=== PATIENT | female | born 1960 | race Caucasian/White ===

== ENCOUNTER → 2021-02-12 10:38 | Outpatient (BNVA) | payer SELFPAY | PROVIDERS: Family Provider Family Medicine; Visit Provider Nurse Practitioner Family | DX: M25.50 Pain in unspecified joint (principal); Z13.6 Encounter for screening for cardiovascular disorders | CPT/HCPCS: 80053; 80061; 82306; 82607; 83735; 84443; 84550; 85025; 85651; 86038; 86140; 86431 ==

== ENCOUNTER → 2021-02-19 11:28 | Outpatient (BNVA) | payer SELFPAY | PROVIDERS: Family Provider Family Medicine; Visit Provider Nurse Practitioner Family | DX: R60.9 Edema, unspecified (principal) | CPT/HCPCS: 80048 ==

== ENCOUNTER → 2021-02-25 11:51 | Outpatient (BNVA) | payer SELFPAY | PROVIDERS: Family Provider Family Medicine; Visit Provider Nurse Practitioner Family | DX: R60.9 Edema, unspecified (principal); E53.8 Deficiency of other specified B group vitamins | CPT/HCPCS: 80048; 83880 ==

== ENCOUNTER → 2021-03-03 14:41 | Outpatient (BNVA) | payer SELFPAY | PROVIDERS: Family Provider Family Medicine; Visit Provider Nurse Practitioner Family | DX: R60.9 Edema, unspecified (principal); E53.8 Deficiency of other specified B group vitamins | CPT/HCPCS: 80053; 83880; 85025; 85651; 86140 ==

== ENCOUNTER → 2021-03-14 11:40 | Outpatient (BNVA) | payer SELFPAY | PROVIDERS: Family Provider Family Medicine; PCP Family Medicine; Visit Provider Nurse Practitioner Family | DX: R60.9 Edema, unspecified (principal); L03.119 Cellulitis of unspecified part of limb; E53.8 Deficiency of other specified B group vitamins; Z79.899 Other long term (current) drug therapy | CPT/HCPCS: 80048; 82607 ==

== ENCOUNTER → 2021-03-27 13:08 | Outpatient (BNVA) | payer SELFPAY | PROVIDERS: Family Provider Family Medicine; PCP Family Medicine; Visit Provider Nurse Practitioner Family | DX: R60.9 Edema, unspecified (principal); Z79.899 Other long term (current) drug therapy | CPT/HCPCS: 80048 ==

== ENCOUNTER 2021-04-11 12:09 | Outpatient (CLI) | payer SELFPAY ==
--- NOTE | 2021-04-11 12:45 | USCV_ITS ---
Peggy White Age: 60 Gender: F : 1960 Exam Date: 04/11/2021 12:35 Ordering Phys: Yolanda Mora [employer]RB[employer]ENEWAL MANAGER Technologist: RENNY Exam Location: [facility] – [place] Indication: EDEMA BP: / HR: 97 Rhythm: Sinus Technical Quality: Adequate MEASUREMENTS (Male / Female) Normal Values 2D ECHO LV Diastolic Diameter PLAX 3.5 cm 4.2 - 5.9 / 3.9 - 5.3 cm LV Systolic Diameter PLAX 2.4 cm LV Chamber Size 3.9 cm IVS Diastolic Thickness 1.2 cm 0.6 - 1.0 / 0.6 - 0.9 cm IVS Systolic Thickness 1.2 cm LVPW Diastolic Thickness 1.5 cm 0.6 - 1.0 / 0.6 - 0.9 cm LVPW Systolic Thickness 1.6 cm RV Chamber Size 2.1 cm LVOT Diameter 2.1 cm LV Ejection Fraction 2D Teich 61.1 % LV Ejection Fraction MOD 2C 37.6 % LV Ejection Fraction 2C AL 36.5 % LA Diameter 3.0 cm LA Width 2.1 cm LA Height 3.4 cm RA Width 2.4 cm RA Height 3.5 cm Aorta at Sinotubular Diameter 2.6 cm M-MODE LV Diastolic Diameter MM 4.7 cm 4.2 - 5.9 / 3.9 - 5.3 cm LV Systolic Diameter MM 3.0 cm LV Ejection Fraction MM Teich 66.5 % IVS Diastolic Thickness MM 0.7 cm 0.6 - 1.0 / 0.6 - 0.9 cm IVS Systolic Thickness MM 0.8 cm LVPW Diastolic Thickness MM 1.0 cm 0.6 - 1.0 / 0.6 - 0.9 cm LVPW Systolic Thickness MM 1.0 cm Aortic Annulus Diameter 2.8 cm LA Ao Ratio MM 1.2 MV E Point Septal Separation 0.5 cm DOPPLER AV Peak Velocity 181.0 cm/s LVOT Peak Velocity 135.0 cm/s AV Area Cont Eq vti 2.9 cm squared AV Area Cont Eq pk 2.5 cm squared MV Area PHT 3.1 cm squared Mitral E to A Ratio 0.8 MV E' Velocity 54.0 cm/s Mitral E to MV E' Ratio 7.1 Mitral E to LV E' Lateral Ratio 6.7 Mitral E to LV E' Septal Ratio 7.6 TR Peak Velocity 267.8 cm/s TR Peak Gradient 28.7 mmHg TV Peak E Velocity 56.0 cm/s Right Atrial Pressure 3.0 mmHg Pulmonary Artery Systolic Pressu 31.7 mmHg PV Peak Velocity 76.0 cm/s RV Acceleration Time 0.1 s RV Ejection Time 0.4 s RV AcT/ET 0.4 FINDINGS Left Ventricle Normal left ventricular size and systolic function, EF 60%. No regional wall motion abnormalities. Grade I/IV diastolic dysfunction (abnormal relaxation filling pattern), normal to mildly elevated filling pressures. Mildly increased left ventricular mass. Mildly increased septal wall thickness. Moderately increased posterior wall thickness. Moderately decreased left ventricular ejection fraction. Right Ventricle The right ventricle is normal in size and function. Right Atrium The right atrium is normal in size. Left Atrium The left atrium is normal in size. Mitral Valve No gross morphologic abnormalities Aortic Valve Thickened aortic valve. Mild aortic valve regurgitation. Tricuspid Valve Trace to mild tricuspid valve regurgitation. Pulmonic Valve Pulmonic valve not well visualized. Pericardium Normal pericardium without effusion. Aorta Normal ascending aorta dimension. CONCLUSIONS Normal left ventricular size and systolic function, EF 60%. No regional wall motion abnormalities. Grade I/IV diastolic dysfunction (abnormal relaxation filling pattern), normal to mildly elevated filling pressures. Thickened aortic valve. Mild aortic valve regurgitation. Trace to mild tricuspid valve regurgitation. There is no pericardial effusion. There are no intracardiac masses. Dr Yao Neri MD FAC (Electronically Signed) Final Date: 11 April 2021 16:25 S
== END 2021-04-11 12:10 | disposition home or self-care (01) ==
LOC: RAD 12:13
PROVIDERS: PCP Nurse Practitioner Family; Visit Provider Nurse Practitioner Family
DX: R60.9 Edema, unspecified (principal); R79.89 Other specified abnormal findings of blood chemistry; I08.2 Rheumatic disorders of both aortic and tricuspid valves
CPT/HCPCS: 93306

== ENCOUNTER 2021-04-11 13:07 | Outpatient (CLI) | payer SELFPAY ==
--- NOTE | 2021-04-11 13:16 | XR_ITS ---
WS: [id number] SCREENING DEXA SCAN [employer] CLINICAL INFORMATION: N95.1 - Menopausal and female climacteric states COMPARISON: None. FINDINGS: The L1-L4 bone mineral density measures 0.909 g/cm2. This corresponds to a T score score of -2.3 and Z score of -0.8. Left femoral neck bone mineral density measures 0.583 g/cm2. This corresponds to a T score of -3.4 an d Z score of -2.3. Right femoral neck bone mineral density measures 0.585 g/cm2. This corresponds to a T score -3.4of an d Z score of -2.3. Mean femoral neck bone mineral density measures 0.584 g/cm2. This corresponds to a T score of -3.4 an d Z score of -2.3. XR/XR DEXA axial skeleton* [id number] IMPRESSION: Osteopenia lumbar spine. Osteoporosis in the femoral necks. Patient's FRAX calculated 10 year probability for major osteoporotic fracture i s 12.1 % and osteoporotic hip fracture is 2.8%.
== END 2021-04-11 13:08 | disposition home or self-care (01) ==
LOC: RADWPI 13:10
PROVIDERS: PCP Nurse Practitioner Family; Visit Provider Nurse Practitioner Family
DX: N95.1 Menopausal and female climacteric states (principal); M85.88 Other specified disorders of bone density and structure, other site; M81.0 Age-related osteoporosis without current pathological fracture
CPT/HCPCS: 77080

== ENCOUNTER → 2021-06-03 14:28 | Outpatient (BNVA) | payer SELFPAY | PROVIDERS: PCP Nurse Practitioner Family; Referring Provider Nurse Practitioner Family; Visit Provider Internal Medicine | DX: R06.02 Shortness of breath (principal); R79.89 Other specified abnormal findings of blood chemistry; R60.9 Edema, unspecified; Z13.6 Encounter for screening for cardiovascular disorders; I50.30 Unspecified diastolic (congestive) heart failure; I11.0 Hypertensive heart disease with heart failure; Z87.891 Personal history of nicotine dependence | CPT/HCPCS: 80048; 83880 ==

== ENCOUNTER → 2021-08-04 14:29 | Outpatient (BNVA) | payer SELFPAY | PROVIDERS: PCP Nurse Practitioner Family; Visit Provider Nurse Practitioner Family | DX: I10 Essential (primary) hypertension (principal); E55.9 Vitamin D deficiency, unspecified; E53.8 Deficiency of other specified B group vitamins | CPT/HCPCS: 80053; 82306; 82607 ==

== ENCOUNTER 2021-08-22 08:25 | Outpatient (CLI) | payer SELFPAY ==
[2021-08-22 09:05] VITALS: BMI 23.3
--- NOTE | 2021-08-22 09:06 | ECG_ITS ---
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 Interpretive Statements NAME OF STUDY: LEXISCAN SESTAMIBI STRESS TEST INDICATION: [Chest Pain, ] Procedure: At the baseline, the blood pressure was 136/76 mmHg with a heart rate of T7 bpm. The electrocardiogram showed normal sinus rhythm, normal axis with normal ST and T's. The Lexiscan was infused over a period of 20 seconds. A total of 0.4 mg of Lexiscan was infused. The stress phase was continued for a total of 5 minutes. Heart rate was at the end of stress phase was 98 bpm and a blood pressure of 143/79 mmHg. The EKG at the peak infusion revealed since normal sinus rhythm with no significant ST-T wave changes. Sestamibi was injected 20 seconds after the Lexiscan infusion. Blood pressure at the end of recovery phase was 144/76 mmHg with a heart rate of 97 bpm. Conclusion: 1. Normal EKG response to Lexiscan infusion 2. No Lexiscan induced chest pain or cardiac arrhythmia. 3. Normal blood pressure and heart rate response. 4. Sestamibi/sestamibi perfusion scan pending; see separate report. Electronically Signed On 08-25-2021 11:32:53 FOOD SERVICE DRIVER by Yunior Pinto M.D. [email or web address]
--- NOTE | 2021-08-22 09:06 | NMCV_ITS ---
NM tamiko perf SPECT r/s* [id number] Peggy White Age: 61 Gender: F : 1960 Exam Date: 08/22/2021 09:34 Ordering Phys: Yunior Pinto M.D ([email or web address]) Technologist: RILEY Alba Exam Location: [facility] Indications: CHEST PAIN STRESS TEST [facility] IMAGE PROTOCOL Rest/Stress 1 Lexiscan Day Radiopharmaceutical Dose (mCi) Administration Site Administered by Rest: Tc-99m 10.8 IV RILEY Rodriguez Sestamibi Stress:Tc-99m 32.4 IV RILEY Rodriguez Sestamibi Rest: 22-Aug-2021 60 Discovery 630 Stress: 22-Aug-2021 30 Discovery 630 0.4mg Lexiscan. Images obtained in supine and prone position. SPECT RESULTS Technical Quality: Excellent Raw Data Analysis: Normal Image Corrections: No attenuation or motion correction applied Summed Stress Score: 0 Summed Rest Score: 0 Summed Difference Score: 0 PERFUSION FINDINGS SPECT images demonstrate homogeneous tracer distribution throughout the myocardium. FUNCTIONAL RESULTS (calculated via Gated SPECT) Stress Image LV EF (%): 87 Stress EDV (mL):53 TID: 0.91 Stress ESV (mL):7 FUNCTIONAL FINDINGS: There is normal left ventricular systolic function. IMPRESSIONS 1. Normal myocardial perfusion imaging with no evidence of ischemia. 2. LV systolic function is normal. Yunior Pinto MD (Electronically Signed) Final Date: 23 August 2021 20:07 S
[2021-08-22] MEDS: regadenoson 0.4 Mg/5 ml Syringe IVP (10:15)
[2021-08-22 10:37] VITALS: BP 144/76; PULSE 97
== END 2021-08-22 08:26 | disposition home or self-care (01) ==
LOC: CDL 08:27
PROVIDERS: PCP Nurse Practitioner Family; Visit Provider Internal Medicine
DX: R07.9 Chest pain, unspecified (principal)
CPT/HCPCS: 78452; 93017; A9500; J2785

== ENCOUNTER → 2021-09-16 13:52 | Outpatient (BNVA) | payer SELFPAY | PROVIDERS: PCP Nurse Practitioner Family; Visit Provider Internal Medicine | DX: Z13.6 Encounter for screening for cardiovascular disorders (principal); R06.02 Shortness of breath; R79.89 Other specified abnormal findings of blood chemistry; R60.9 Edema, unspecified; I11.0 Hypertensive heart disease with heart failure; I50.30 Unspecified diastolic (congestive) heart failure; Z87.891 Personal history of nicotine dependence | CPT/HCPCS: 80048; 83880 ==

== ENCOUNTER → 2021-10-13 17:32 | Outpatient (BNVA) | payer SELFPAY | PROVIDERS: PCP Nurse Practitioner Family; Visit Provider Family Medicine | DX: I50.9 Heart failure, unspecified (principal); E53.9 Vitamin B deficiency, unspecified | CPT/HCPCS: 71046 ==

== ENCOUNTER → 2021-11-10 08:45 | Outpatient (BNVA) | payer SELFPAY | PROVIDERS: PCP Nurse Practitioner Family; Visit Provider Nurse Practitioner Family | DX: E16.2 Hypoglycemia, unspecified (principal); E53.8 Deficiency of other specified B group vitamins | CPT/HCPCS: 83036 ==

== ENCOUNTER 2021-11-17 14:24 | Outpatient (CLI) | payer SELFPAY ==
--- NOTE | 2021-11-17 14:36 | CT_ITS ---
WS: [id number] LDCT LUNG CANCER SCREENING HISTORY: Z87.891 - Personal history of nicotine dependence TECHNIQUE: Axial imaging performed from the apices to 1 cm below the costophrenic angles. Coronal and sagittal reformats are submitted with axial MIP series. All CT scans at [facility] use at least one of these dose optimization techniques: automated exposure control; mA and/or kV adjustment per patient size (includes targeted exams where dose is matched to clinical indication); or iterativ e reconstruction. DLP: 56.96 mGy.cm DIvol: Mean CTDIvol: 1.58 (mGy) COMPARISON: None available. Diagnostic quality: Satisfactory Lung Nodules: Focal RIGHT apical pleural thickening and scarring measures 17 x 27 mm. Favor this is p leural parenchymal scarring and fibrosis. 5 mm nodule RIGHT upper lobe image 55 series 3. 4 mm nodule along the inferior RIGHT major fissure. Lungs: Marked emphysema. Heart: Normal size heart. No pericardial effusion. Other findings: Mild atherosclerosis aorta. Pulmonary artery size is equal to the aorta. Small hiatal hernia. Increase in thoracic kyphosis. Mild anterior wedging of T8. CT/CT lung screening [id number] IMPRESSION: LUNG-RADS: 3-Probably Benign FOLLOW UP: 6 Month LDCT OTHER FINDINGS (S MODIFIER): None.
== END 2021-11-17 14:25 | disposition home or self-care (01) ==
LOC: RAD 14:28
PROVIDERS: PCP Family Medicine; Visit Provider Family Medicine
DX: Z12.2 Encounter for screening for malignant neoplasm of respiratory organs (principal); Z87.891 Personal history of nicotine dependence; I70.0 Atherosclerosis of aorta; K44.9 Diaphragmatic hernia without obstruction or gangrene
CPT/HCPCS: 71271

== ENCOUNTER → 2022-05-22 11:43 | Outpatient (BNVA) | payer SELFPAY | PROVIDERS: PCP Family Medicine; Visit Provider Family Medicine | DX: I10 Essential (primary) hypertension (principal); E53.9 Vitamin B deficiency, unspecified; E55.9 Vitamin D deficiency, unspecified | CPT/HCPCS: 80053; 80061; 82306; 82607; 85025 ==

== ENCOUNTER → 2022-08-04 15:28 | Outpatient (BNVA) | payer SELFPAY | PROVIDERS: PCP Family Medicine; Visit Provider Obstetrics & Gynecology | DX: Z12.4 Encounter for screening for malignant neoplasm of cervix (principal) | CPT/HCPCS: 87624 ==

== ENCOUNTER 2022-08-11 13:51 | Outpatient (CLI) | payer SELFPAY ==
--- NOTE | 2022-08-11 14:06 | MM_ITS ---
WS: [id number] VIEWS: MLO and CC views both breasts. 3D digital tomosynthesis is also included in this exam. Comparison made with prior exam of 12/14/2016. Findings: There was no sign of mass, architectural distortion or suspicious calcification in either breast. He terogeneously dense MM/[place] [id number] Impression: BI-RADS: 2-Benign FOLLOW-UP: 1 Year Follow-up This mammogram was also analyzed by the Computer Aided Detection System R2 Imag e Steel Detailer.
== END 2022-08-11 13:52 | disposition home or self-care (01) ==
PROVIDERS: PCP Family Medicine; Visit Provider Family Medicine
DX: Z12.31 Encounter for screening mammogram for malignant neoplasm of breast (principal)
CPT/HCPCS: 77063; 77067

== ENCOUNTER → 2022-08-19 14:05 | Outpatient (BNVA) | payer SELFPAY | PROVIDERS: PCP Family Medicine; Visit Provider Internal Medicine Pulmonary Disease | DX: T78.40XA Allergy, unspecified, initial encounter (principal); R06.02 Shortness of breath; R05.3 Chronic cough; Z87.891 Personal history of nicotine dependence; M25.641 Stiffness of right hand, not elsewhere classified; J44.9 Chronic obstructive pulmonary disease, unspecified; M25.642 Stiffness of left hand, not elsewhere classified | CPT/HCPCS: 82785; 85025; 86003 ==

== ENCOUNTER → 2022-09-07 13:15 | Outpatient (BNVA) | payer SELFPAY | PROVIDERS: PCP Family Medicine; Visit Provider Family Medicine | DX: Z13.1 Encounter for screening for diabetes mellitus (principal); I10 Essential (primary) hypertension; E55.9 Vitamin D deficiency, unspecified | CPT/HCPCS: 80053; 80061; 82306; 83036; 85025 ==

== ENCOUNTER → 2022-09-30 17:45 | Outpatient (BNVA) | payer SELFPAY | PROVIDERS: PCP Family Medicine; Visit Provider Nurse Practitioner Family | DX: E53.8 Deficiency of other specified B group vitamins (principal); M25.641 Stiffness of right hand, not elsewhere classified; M25.642 Stiffness of left hand, not elsewhere classified; M81.0 Age-related osteoporosis without current pathological fracture; E78.5 Hyperlipidemia, unspecified | CPT/HCPCS: 82607; 82746; 83735; 84443; 84550; 85025; 85651; 86038; 86140; 86431 ==

== ENCOUNTER → 2022-11-26 15:15 | Outpatient (BNVA) | payer BC, SELFPAY | PROVIDERS: PCP Family Medicine; Visit Provider Internal Medicine | DX: M20.40 Other hammer toe(s) (acquired), unspecified foot (principal); M25.50 Pain in unspecified joint | CPT/HCPCS: 36415; 72040; 73120; 73630; 80053; 85025; 85651; 86140; 86160; 86162; 86235; 86255; 86376; 86431; 86704; 86803; 87340 ==

== ENCOUNTER 2022-12-17 14:10 | Outpatient (CLI) | payer BC, SELFPAY ==
--- NOTE | 2022-12-17 14:43 | CT_ITS ---
WS: [id number] CT CHEST WITHOUT INTRAVENOUS CONTRAST HISTORY: R91.1 - Solitary pulmonary nodule TECHNIQUE: Contiguous 5 mm axial imaging performed on the thorax. Coronal and sagittal reformats are submitted. All CT scans at [facility] use at least one of these dose optimization techniques: automated exposure control; mA and/or kV adjustment per patient size (includes targeted exams where dose is matched to clinical indication); or iterative reconstruction. CONTRAST: None DLP: 296.98 mGy.cm COMPARISON: 11/17/2021 Lungs and central airway: Marked pulmonary hyperinflation. Central lobular emphysema. No increase in size of the pleural thickening and fibrosis at the RIGHT apex now measuring 12 x 25 mm. RIGHT upper l obe 5 mm nodule, image 16 of series 4 unchanged. No change in the 4 mm nodule along the RIGHT fissure . No pneumonia. No mass. Pleura: Normal. No pleural effusion. Heart and pericardium: Normal size heart with no pericardial effusion. Mediastinum and karli: No mediastinum or hilar adenopathy. Vessels: Mild atherosclerosis aorta. Pulmonary artery is equal size to the aorta. Chest wall and lower neck: No soft tissue masses. Upper abdomen: Mildly contracted gallbladder. No adrenal mass. Osseous structures: Increase in thoracic kyphosis. Mild degenerative disc space narrowing and osteoph ytosis. CT/CT chest wo con [id number] IMPRESSION: 1. Severe chronic centrilobular emphysema. 2. RIGHT apical pleural thickening and the RIGHT upper lobe subcentimeter nodu le is unchanged since 11/17/2021. 3. No pneumonia.
== END 2022-12-17 14:11 | disposition home or self-care (01) ==
PROVIDERS: PCP Family Medicine; Visit Provider Internal Medicine Pulmonary Disease
DX: R91.1 Solitary pulmonary nodule (principal)
CPT/HCPCS: 71250

== ENCOUNTER 2023-02-15 06:00 | Outpatient (RCR) | payer BC, SELFPAY | END 2023-03-17 23:59 | disposition home or self-care (01) | LOC: TOT 06:00 | PROVIDERS: PCP Family Medicine; Visit Provider Internal Medicine | DX: M21.949 Unspecified acquired deformity of hand, unspecified hand (principal) | CPT/HCPCS: 97110; 97140; 97530 ==

== ENCOUNTER 2023-03-02 15:31 | Outpatient (CLI) | payer BC, SELFPAY ==
--- NOTE | 2023-03-02 15:30 | USCV_ITS ---
Peggy White Age: 62 Gender: F : 1960 Exam Date: 03/02/2023 16:02 Ordering Phys: Steven Babcock MD Technologist: KENTON Exam Location: [facility] [place] Indication: Dizziness Risk Factors: Previous Vascular Surgery: Right Brachial BP: / Left Brachial BP: / Right Left Velocity (cm/s) Spectral Plaque Velocity (cm/s) Spectral Plaque Syst/Diast Broadening Syst/Diast Broadening 100.30/18.70 Prox CCA 89.30 / 25.40 100.30/32.00 Mid CCA 72.20 / 18.90 98.70/ 22.50 Distal CCA 83.10 / 28.00 71.00/ 22.00 Prox ICA 64.90 / 24.80 71.00/ 27.00 Mid ICA 71.40 / 27.60 83.80/ 27.00 Distal ICA 78.30 / 28.80 125.70 ECA 118.80 0.83 ICA/CCA 0.88 Antegrade Vertebral Antegrade 55.90/ 10.50 cm/s 53.90/ 16.40 cm/s Tri Subclavian Tri 101.4 82.70 0 FINDINGS Comparison: none available. No significant elevation of systolic or diastolic velocities. Waveforms are normal. Minimal bilateral, carotid atherosclerosis with no elevation of velocity. Antegrade vertebral arteries. CONCLUSIONS Bilateral ICA stenosis less than 50%. Mild carotid atherosclerosis. Dr. lAayna García DO (Electronically Signed) Final Date: 03 Mar 2023 07:40 S
== END 2023-03-02 15:32 | disposition home or self-care (01) ==
LOC: RAD 15:33
PROVIDERS: PCP Family Medicine; Visit Provider Internal Medicine Pulmonary Disease
DX: I65.23 Occlusion and stenosis of bilateral carotid arteries (principal)
CPT/HCPCS: 93880

== ENCOUNTER 2023-03-08 15:26 | Outpatient (CLI) | payer BC, SELFPAY ==
--- NOTE | 2023-03-08 15:15 | MR_ITS ---
WS: [id number] MRI LEFT HAND without CONTRAST. COMPARISON: LEFT hand radiograph 11/26/2022 Multiplanar, multisequence imaging is performed without contrast. Nearly nondiagnostic evaluation of the hand. Suboptimal imaging technique and motion artifact. This study is not adequate to evaluate for erosions fractures or tendon injury. There does appear to be mild flexion at the metacarpal phalangeal joint. Suspect small erosion involving the fifth metacar pal head. There are a few small subchondral cystic foci in the capitate and hamate. No widening of th e scapholunate ligament. MR/MR hand LT wo con* [id number] IMPRESSION: 1. Diagnostically very limited evaluation of the hand due to multiple factors. 2. Small erosion involving the fifth metacarpal head. 3. Subchondral cysts in the capitate and hamate. 4. There is mild flexion at the metatarsophalangeal joints. Study is not adequ ate to evaluate the ligaments and for fine bone detail.
== END 2023-03-08 15:27 | disposition home or self-care (01) ==
PROVIDERS: PCP Family Medicine; Visit Provider Internal Medicine
DX: M21.949 Unspecified acquired deformity of hand, unspecified hand (principal); M25.641 Stiffness of right hand, not elsewhere classified; M25.642 Stiffness of left hand, not elsewhere classified; M20.40 Other hammer toe(s) (acquired), unspecified foot; M85.642 Other cyst of bone, left hand
CPT/HCPCS: 73218

== ENCOUNTER 2023-03-18 06:00 | Outpatient (RCR) | payer BC, SELFPAY | END 2023-04-16 23:59 | disposition home or self-care (01) | LOC: TOT 06:00 | PROVIDERS: PCP Family Medicine; Visit Provider Internal Medicine | DX: M21.949 Unspecified acquired deformity of hand, unspecified hand (principal) | CPT/HCPCS: 97110; 97140; 97530 ==

== ENCOUNTER 2023-04-06 12:53 | Outpatient (CLI) | payer BC, SELFPAY ==
[2023-04-06 13:21] VITALS: PULSE 107; RESP 18; O2SAT 94
[2023-04-06] MEDS: albuterol 2.5 mg/3 mL Neb INHALATION (13:21)
[2023-04-06 13:26] VITALS: PULSE 106
== END 2023-04-06 12:54 | disposition home or self-care (01) ==
PROVIDERS: PCP Family Medicine; Visit Provider Internal Medicine Pulmonary Disease
DX: R05.8 Other specified cough (principal); R06.09 Other forms of dyspnea; R94.2 Abnormal results of pulmonary function studies
CPT/HCPCS: 94060; 94618; 94726; 94729; J7613

== ENCOUNTER → 2023-04-08 10:40 | Outpatient (BNVA) | payer BC, SELFPAY | PROVIDERS: PCP Family Medicine; Visit Provider Psychiatry & Neurology Neurology | DX: M21.949 Unspecified acquired deformity of hand, unspecified hand (principal); E78.5 Hyperlipidemia, unspecified; E53.8 Deficiency of other specified B group vitamins; M81.0 Age-related osteoporosis without current pathological fracture | CPT/HCPCS: 36415; 83520 ==

== ENCOUNTER 2023-04-17 06:00 | Outpatient (RCR) | payer BC, SELFPAY | END 2023-05-17 23:59 | disposition home or self-care (01) | LOC: TOT 06:00 | PROVIDERS: PCP Family Medicine; Visit Provider Internal Medicine | DX: M21.949 Unspecified acquired deformity of hand, unspecified hand (principal) | CPT/HCPCS: 97110; 97140; 97530 ==

== ENCOUNTER 2023-05-18 06:00 | Outpatient (RCR) | payer BC, SELFPAY | END 2023-06-17 23:59 | disposition home or self-care (01) | LOC: TOT 06:00 | PROVIDERS: PCP Family Medicine; Visit Provider Internal Medicine | DX: M21.949 Unspecified acquired deformity of hand, unspecified hand (principal) | CPT/HCPCS: 97530 ==

== ENCOUNTER 2023-06-09 15:42 | Outpatient (CLI) | payer BC, SELFPAY ==
[2023-06-09 16:50] LABS: Basophils % 0.4 %; Eosinophils # 0.1 10^3/uL (0.0-0.8); Eosinophils % 1.1 %; Hematocrit 42.2 % (36-47); Lymphocytes # 0.8 10^3/uL (0.8-4.8); Lymphocytes % 11.7 %; Mean Corpuscular HGB Conc 31.8 g/dL (30-55); Mean Corpuscular Volume 94.4 fl (85-98); Monocytes # 0.6 10^3/uL (0.2-0.9); Monocytes % 7.6 %; Neutrophils # 5.68 10^3/uL (1.8-7.7); Neutrophils % 78.8 %; Nucleated Red Blood Cells % 0 %; Platelet Count 202 10^3/cmm (157-399); Red Blood Count 4.47 10^6/uL (3.85-5.65); Red Cell Distribution Width 13.4 % (12.1-15.1); White Blood Count 7.21 10^3/uL (3.29-11.43)
[2023-06-09 17:00] LABS: Erythrocyte Sedimentation Rate 9 mm/hr (0-15)
[2023-06-09 17:05] LABS: Alanine Aminotransferase 19 U/L (0-33); Albumin Level 4.1 g/dL (3.5-5.2); Alkaline Phosphatase 88 U/L (35-105); Anion Gap 13.2 (5-19); Aspartate Amino Transferase 17 U/L (0-32); Blood Urea Nitrogen 23 mg/dL (8-23); Calcium 8.6 mg/dL (8.5-10.5); Carbon Dioxide 28 mmol/L (22-29); Chloride 101 mmol/L (98-107); Globulin 2.7 g/dL (1.3-4.6); Glomerular Filtration Rate 84.8 mL/min (90-130); Glucose 112 mg/dL (65-115); Osmolality Calculated 290 mOsm/kg (285-295); Potassium 4.2 mmol/L (3.5-5.1); Sodium 138 mmol/L (136-145); Total Bilirubin 0.3 mg/dL (0.15-1.2); Total Protein 6.8 g/dL (6.6-8.7)
== END 2023-06-09 15:43 | disposition home or self-care (01) ==
LOC: LAB 15:46
PROVIDERS: PCP Family Medicine; Visit Provider Internal Medicine
DX: R29.898 Other symptoms and signs involving the musculoskeletal system (principal)
CPT/HCPCS: 36415; 80053; 85025; 85651; 86140

== ENCOUNTER → 2023-11-22 15:33 | Outpatient (BNVA) | payer SELFPAY | PROVIDERS: PCP Family Medicine; Visit Provider Nurse Practitioner Family | DX: R30.0 Dysuria (principal); I10 Essential (primary) hypertension | CPT/HCPCS: 81003; 87086 ==